=== PATIENT | male | born 1980 ===

== ENCOUNTER 2021-01-18 10:25 | Emergency (ER) | payer OTHER ==
[2021-01-18] MEDS ORDERED: Ibuprofen 800 MG Tab PO ONE (10:55)
--- NOTE | 2021-01-18 10:55 | EDM.PDOC ---
ED HPI GENERAL MEDICAL PROBLEM - General Chief Complaint: Lower Extremity Injury/Pain Stated Complaint: RT FOOT Time Seen by Provider: 01/18/21 10:36 Source of Information: Reports: Patient History Limitations: Reports: No Limitations - History of Present Illness INITIAL COMMENTS - FREE TEXT/NARRATIVE: A 40-year-old male who presents today for right ankle pain. Patient was at work when a large pin fell onto his ankle. Patient is able to ambulate but has some pain to the lateral side of the right ankle. Patient denies any other injuries. Patient has no other complaints. right ankle Pain Score (Numeric/FACES): 8 - Related Data Allergies Allergy/AdvReac Type Severity Reaction Status Date / Time No Known Allergies Allergy Verified 01/18/21 10:49 Home Meds: Home Meds . [No Known Home Meds] 01/18/21 [History] Review of Systems - Review of Systems Review Of Systems: See Below Constitutional: Reports: No Symptoms Eyes: Reports: No Symptoms Ears: Reports: No Symptoms Nose: Reports: No Symptoms Mouth/Throat: Reports: No Symptoms Respiratory: Reports: No Symptoms Cardiovascular: Reports: No Symptoms GI/Abdominal: Reports: No Symptoms Genitourinary: Reports: No Symptoms Musculoskeletal: Reports: Leg Pain Skin: Reports: No Symptoms Neurological: Reports: No Symptoms Psychiatric: Reports: No Symptoms ED EXAM, GENERAL - Physical Exam Exam: See Below Exam Limited By: No Limitations General Appearance: Alert, WD/WN Respiratory/Chest: No Respiratory Distress Cardiovascular: Normal Peripheral Pulses Peripheral Pulses: 2+: Dorsalis Pedis (L), Dorsalis Pedis (R) Extremities: Normal Inspection, Normal Range of Motion, Non-Tender Skin Exam: Other (abrasion to tibia no laceration) Course - Vital Signs Last Recorded V/S: Last Vital Signs Temp 97.0 F 01/18/21 10:50 Pulse 59 L 01/18/21 10:50 Resp 18 01/18/21 10:50 BP 117/65 01/18/21 10:50 Pulse Ox 98 01/18/21 10:50 - Orders/Labs/Meds Orders: Active Orders 24 hr Category Date Time Status Tibia Fibula Lt [CR] Stat Exams 01/18/21 10:51 Taken DME for Discharge [COMM] Stat Oth 01/18/21 11:36 Ordered Meds: Medications Discontinued Medications Generic Name Dose Route Start Last Admin Trade Name Freq PRN Reason Stop Dose Admin Ibuprofen 800 mg 01/18/21 10:55 01/18/21 11:15 Ibuprofen 800 Mg Tab PO 01/18/21 10:56 800 mg ONETIME ONE Administration - Re-Assessments/Exams Free Text/Narrative Re-Assessment/Exam: 01/18/21 11:36 Patient x-ray shows no fractures. Will discharge patient home and give strict return precautions if pain is not better next 7 to 10 days or any other injuries patient can return to the ER for additional imaging. What you are ordering DONTA wrap Why you are ordering it support and pain relief How it will benefit patient support and pain relief How long is patient to use it 7-10 days Departure - Departure Time of Disposition: 11:37 Disposition: Home, Self-Care 01 Condition: Good Clinical Impression: Ankle sprain - Discharge Information *PRESCRIPTION DRUG MONITORING PROGRAM REVIEWED*: Not Applicable *COPY OF PRESCRIPTION DRUG MONITORING REPORT IN PATIENT MICHAEL: Not Applicable Instructions: Ankle Sprain, [id number] Referrals: PCP,None [Primary Care Provider] - Forms: ED Department Discharge Additional Instructions: The following information is given to patients seen in the emergency department who are being discharged to home. This information is to outline your options for follow-up care. We provide all patients seen in our emergency department with a follow-up referral. The need for follow-up, as well as the timing and circumstances, are variable depending upon the specifics of your emergency department visit. If you don't have a primary care physician on staff, we will provide you with a referral. We always advise you to contact your personal physician following an emergency department visit to inform them of the circumstance of the visit and for follow-up with them and/or the need for any referrals to a consulting specialist. The emergency department will also refer you to a specialist when appropriate. This referral assures that you have the opportunity for follow-up care with a specialist. All of these measure are taken in an effort to provide you with optimal care, which includes your follow-up. Under all circumstances we always encourage you to contact your private physician who remains a resource for coordinating your care. When calling for follow-up care, please make the office aware that this follow-up is from your recent emergency room visit. If for any reason you are refused follow-up, please contact the [facility] Emergency Department at and asked to speak to the emergency department charge nurse. Please follow up with your primary care physician. If you do not have a primary care physician, see below: [facility] [address] [place] [address] My [facility] [address] [place] [address] Please follow-up with your primary care physician. If you have any additional complaints or concerns please return to the ED. If the pain becomes worse or you have difficulty ambulating please follow-up. Sepsis Event Note (ED) - Focused Exam Vital Signs: Vital Signs Temp Pulse Resp BP Pulse Ox 01/18/21 10:50 97.0 F 59 L 18 117/65 98 - My Orders Last 24 Hours: My Active Orders 01/18/21 10:51 Tibia Fibula Lt [CR] Stat 01/18/21 11:36 DME for Discharge [COMM] Stat - Assessment/Plan Last 24 Hours: My Active Orders 01/18/21 10:51 Tibia Fibula Lt [CR] Stat 01/18/21 11:36 DME for Discharge [COMM] Stat Plan: Patient is a 40-year-old male who presents today for right ankle pain after a band fell onto his foot. Patient is able to ambulate but the pain over the right malleolus but has no tenderness on exam. Will obtain x-ray and reassess.
--- NOTE | 2021-01-18 11:28 | CR ---
Indication: Injury, large, 300 pound been fell onto leg Comparison: None available. Technique: AP and lateral views left tibia and fibula were obtained Findings: There is no displaced fracture or dislocation. The joint spaces are grossly preserved. The soft tissues are unremarkable. Impression: No acute osseus abnormality. Dictated by Daniele Cabrales MD @ Jan 18 2021 11:26AM (Electronically Signed)
--- NOTE | 2021-01-18 11:34 | CR ---
Indication: Injury Comparison: None available. Technique: AP, Lateral, and Oblique views right ankle were obtained Findings: There is no displaced fracture or dislocation. The ankle mortise is symmetrical. The talar dome is smooth and intact. The joint spaces are otherwise grossly preserved. There is mild lateral soft tissue swelling. Impression: Minimal soft tissue swelling without evidence of acute osseous abnormality. Dictated by Daniele Cabrales MD @ Jan 18 2021 11:28AM Signed by Dr. Daniele Cabrales @ Jan 18 2021 11:32AM
== END 2021-01-18 11:51 | disposition home or self-care (01) ==
LOC: MW.ED 10:25
DX: S93.401A Sprain of unspecified ligament of right ankle, initial encounter (principal); W20.8XXA Other cause of strike by thrown, projected or falling object, initial encounter; Y92.89 Other specified places as the place of occurrence of the external cause; Y99.0 Civilian activity done for income or pay
CPT/HCPCS: 73590; 73610; 99283; A9270